=== PATIENT | male | born 1945 | race Caucasian/White ===

== ENCOUNTER 2018-08-25 08:38 | Outpatient (CLI) | payer MEDICARE, OTHER ==
[~2018-08-25] VITALS: Ht 170.3 cm; Wt 84.5 kg
[~2018-08-25 08:38] MED LIST: ASPIR-LOW81 MG PO; ASPIRIN E.C. 8181 MG PO; ATENOLOL50 MG PO; BYSTOLIC5 MG PO; CELEBREX200 MG PO; CENTRUM SILVER1 TA1 PO; CEPHALEXIN500 M1 PO; CORDARONE200 MG/TAB PO; FISH OIL CONC1000 MG PO; FORTAMET1000 MG PO; GLUCOTROL 5M5 MG/TAB PO; GLUMETZA500 MG PO; GLYBURIDE MICRON3 MG PO; GLYBURIDE2.5 MG PO; HCTZ 25MG25 MG PO; JANUVIA25 MG PO; LIPITOR20 MG PO; LISINOPRIL5 MG PO; LORATADINE10 MG PO; MASON NATURAL1200 MG PO; METFORMIN500 MG PO; METOPROLOL25 MG PO; MICARDIS 40MG40 MG PO; MULTAQ400 MG PO; MULTI VITAMINS1 TAB PO; NAPROSYN 2250 MG/TAB PO; NEXIUM 40MG40 MG PO; NIASPAN500 MG PO; NORVASC 10MG10 MG PO; NORVASC2.5 MG PO; NORVASC5 MG PO; PACERONE200 MG PO; PEPCID 20MG TAB20 MG PO; PLAVIX 75MG TAB75 MG PO; PRADAXA 150MG150 MG PO; PRILOSEC 20MG20 MG PO; PROSCAR 5MG5 MG PO; TOPROL XL25 MG PO; VITAMIN C500 MG PO; ZESTRIL 5MG5 MG PO; ZETIA10 MG PO; ZOCOR 40MG40 MG PO; ZOCOR40 MG PO
[2018-08-25 09:08] LABS: HEMATOCRIT 43.1 % (42.0-52.0); HEMOGLOBIN 14.7 g/dl (13.5-18.0); MEAN CELL VOLUME 93 fl (80.0-100.0); MEAN CORPUSCULAR HEMOGLOBIN 32 pg (27.0-31.0); MEAN CORPUSCULAR HGB CONC 34 g/dl (33.0-37.0); PLATELET COUNT 118 K/mm3 (130-400); RED BLOOD COUNT 4.62 M/mm3 (4.20-5.60); REDCELL DISTRIBUTION WIDTH-CV 12.4 % (11.5-14.5)
[2018-08-25 09:14] LABS: CALCIUM 9.3 mg/dL (8.4-10.2); CREATININE, serum 1.36 (0.66-1.25); INR 1.1 (0.8-3.0); POTASSIUM 4.7 mmol/L (3.4-5.0); PROTHROMBIN TIME 12.8 SECONDS (9.7-12.8)
[2018-08-25] MEDS ORDERED: FERROUS SU325 MG/TAB PO (09:18)
[2018-08-25] MEDS ORDERED: JANUVIA50 MG PO (09:21)
[2018-08-25] MEDS ORDERED: MYSOLINE 5050 MG/TAB PO (09:25)
[2018-08-25] MEDS ORDERED: DIPROLENE 0.05% TP (09:25)
[2018-08-25 09:44] VITALS: BP 127/74; PULSE 56; TEMP 98.3
[2018-08-25] MEDS ORDERED: ZESTRIL40 MG PO (10:16)
[2018-08-25 10:30] VITALS: BP 120/69; PULSE 51
--- NOTE | 2018-08-25 10:30 | NUR ---
DOROTA complete, report from Camacho Okeefe RN. Pt resting well, at bedside.
[2018-08-25 10:45] VITALS: BP 128/73; PULSE 58
[2018-08-25 11:00] VITALS: BP 124/73; PULSE 53; TEMP 97.9
[2018-08-25 11:15] VITALS: BP 133/68; PULSE 55
--- NOTE | 2018-08-25 11:15 | NUR ---
Pt has ambulated independantly and gary PO intake s n/v. PIV removed with catheter intact.
--- NOTE | 2018-08-25 11:35 | NUR ---
Pt discharged per w/c by nurse with .
== END 2018-08-25 12:04 | disposition home or self-care (01) ==
LOC: COL.RAD 08:38
PROVIDERS: Internal Medicine Cardiovascular Disease
DX: I48.0 Paroxysmal atrial fibrillation (principal); I08.3 Combined rheumatic disorders of mitral, aortic and tricuspid valves; I70.0 Atherosclerosis of aorta; I25.10 Atherosclerotic heart disease of native coronary artery without angina pectoris; I10 Essential (primary) hypertension; I27.20 Pulmonary hypertension, unspecified; Z95.5 Presence of coronary angioplasty implant and graft; Z79.899 Other long term (current) drug therapy; Z79.01 Long term (current) use of anticoagulants
CPT/HCPCS: J2704; J2710; J3010

== ENCOUNTER 2019-02-05 10:15 | Outpatient (RCR) | payer MEDICARE, OTHER ==
[~2019-02-05 10:15] MED LIST changes: +DIPROLENE 0.05% TP; +FERROUS SU325 MG/TAB PO; +JANUVIA50 MG PO; +MYSOLINE 5050 MG/TAB PO; +ZESTRIL40 MG PO
== END 2019-02-09 10:00 | disposition home or self-care (01) ==
LOC: WSOT 10:15
DX: R25.1 Tremor, unspecified (principal)

== ENCOUNTER → 2021-01-13 | Outpatient (CLI) | payer MEDICARE, OTHER | LOC: COL.RAD 09:50 | DX: D69.6 Thrombocytopenia, unspecified (principal) ==

== ENCOUNTER 2022-05-12 12:15 | Emergency (ER) | payer MEDICARE, OTHER ==
[~2022-05-12] VITALS: Ht 170.2 cm; Wt 80.9 kg
[2022-05-12 12:38] VITALS: TEMP 97.9
[2022-05-12] MEDS ORDERED: NORCO 325 MG-51 TAB PO (13:28)
[2022-05-12 13:38] VITALS: BP 126/74; PULSE 68
== END 2022-05-12 13:47 | disposition home or self-care (01) ==
LOC: COL.ER 12:15
DX: S22.32XA Fracture of one rib, left side, initial encounter for closed fracture (principal); W01.0XXA Fall on same level from slipping, tripping and stumbling without subsequent striking against object, initial encounter; X50.1XXA Overexertion from prolonged static or awkward postures, initial encounter